=== PATIENT | female | born 1960 | race African-American/Black ===

== ENCOUNTER 2016-12-06 06:35 | Inpatient (IN) | payer OTHER, MEDICARE ==
[~2016-12-06] VITALS: Ht 170.2 cm; Wt 117.9 kg
[2016-12-06] MEDS ORDERED: SODIUM CHLORIDE 0.9% 1,000 ML IV ONE (06:46)
[2016-12-06] MEDS ORDERED: MECL-109 PO (06:47)
[2016-12-06] MEDS ORDERED: HYDR-3280 MT (06:49)
[2016-12-06] MEDS ORDERED: TRAM50TA3 PO (06:57)
[2016-12-06] MEDS ORDERED: OMEP20CA10 PO (06:57)
[2016-12-06] MEDS ORDERED: CINA30 PO (06:59)
[2016-12-06] MEDS ORDERED: SEVE800T8 PO (06:59)
[2016-12-06] MEDS ORDERED: CHOL400T15 MT (07:00)
[2016-12-06] MEDS ORDERED: NOREPINEPHRINE 4 MG in DEXT 5% WATER 246 ML IV ONE ×4 (07:15)
[2016-12-06 07:34] LABS: BG BASE EXCESS -0.2 mmol/L (-2.0-2.0); BG CARBOXYHEMOGLOBIN 1.4 % (0.5-1.5); BG DEOXYHEMOGLOBIN 3.1 % (0.0-5.0); BG FRACTION INSPIRED OXYGEN 32; BG HCO3 ACT 24.4 mmol/L (22.0-26.0); BG METHEMOGLOBIN 0.5 % (0.0-1.5); BG OXYGEN SATURATION 96.8 % (92.0-98.5); BG PCO2 39.8 mmHg (35.0-45.0); BG PH 7.405 (7.350-7.450); BG PO2 91.9 mmHg (75.0-100.0); BG SAMPLE SITE RIGHT RADIAL; BG TOTAL HEMOGLOBIN 13.1 g/dL (12.0-18.0); BG VENT MODE NASAL CANNULA
[2016-12-06 08:05] LABS: HEMATOCRIT. 38.4 % (36.0-48.0); HEMOGLOBIN. 12.3 g/dL (12.0-16.0); MEAN CORPUSCULAR HEMOGLOBIN 32.2 pg (28.0-32.0); MEAN CORPUSCULAR VOLUME 100.9 fL (81.0-99.0); MEAN PLATELET VOLUME 10.8 fl (7.4-10.4); PLATELET 58 x1000/uL (130-400); RED BLOOD CELL COUNT 3.81 mill/uL (4.2-5.4); RED CELL DISTRIBUTION WIDTH 17.6 % (11.6-14.6)
[2016-12-06 08:15] LABS: INR 2.1; PROTHROMBIN TIME 21.3 sec (9.4-11.6)
[2016-12-06] MEDS ORDERED: HYDROCODONE/ACETAMINOPHEN 5/325MG TABLET PO PRN ×2 (08:15→11:15)
[2016-12-06] MEDS ORDERED: DIPHENHYDRAMINE 50MG/ML VIAL IV PRN (08:15)
[2016-12-06] MEDS ORDERED: ACETAMINOPHEN 325MG TABLET PO PRN (08:15)
[2016-12-06] MEDS ORDERED: CLONIDINE 0.1MG TABLET PO PRN (08:15)
[2016-12-06] MEDS ORDERED: ACETAMINOPHEN 650MG/20.3ML UDC GT PRN (08:15)
[2016-12-06] MEDS ORDERED: DOCUSATE SODIUM 100MG CAPSULE PO PRN (08:15)
[2016-12-06] MEDS ORDERED: GUAIFENESIN 200MG/10ML SUGAR FREE UDC PO PRN (08:15)
[2016-12-06] MEDS ORDERED: MAGNESIUM/ALUMINUM HYDROXIDE/SIMETHICONE 30ML UDC PO PRN (08:15)
[2016-12-06] MEDS ORDERED: NA PHOS,M-B/NA PHOS,DI-BA ENEMA 118ML PR PRN (08:15)
[2016-12-06] MEDS ORDERED: IPRATROPIUM/ALBUTEROL 0.5-3(2.5)MG/3ML NEB INH PRN (08:15)
[2016-12-06] MEDS ORDERED: ACETAMINOPHEN 650MG SUPP PR PRN (08:15)
[2016-12-06 08:25] LABS: CARBON DIOXIDE 26 mEq/L (21-32); CHLORIDE 99 mEq/L (98-107); TROPONIN I 0.19 ng/mL (0.00-0.04)
[2016-12-06] MEDS ORDERED: VANCOMYCIN 1 G PREMIX 200 ML IV SCH (08:45)
[2016-12-06] MEDS ORDERED: GENTAMICIN 80MG PREMIX 100 ML IV ONE (08:45)
[2016-12-06 08:49] LABS: NUCLEATED RED BLOOD CELLS 2 /100 WBC; PLATELET ESTIMATE DECREASED
[2016-12-06] MEDS ORDERED: PIPERACILLIN/TAZ 3.375G PREMIX 50 ML IV ONE (09:00)
[2016-12-06 12:00] VITALS: BP 95/51
[2016-12-06] MEDS ORDERED: CINACALCET HCL 60MG TABLET PO SCH (13:00)
[2016-12-06] MEDS ORDERED: MIDODRINE HCL 5MG TABLET PO SCH (13:00)
[2016-12-06] MEDS: SEVELAMER CARBONATE 800 MG TABLET PO SCH ×2 (13:10→17:31)
[2016-12-06] MEDS ORDERED: PIPERACILLIN/TAZ 2.25G PREMIX 50 ML IV SCH (14:00)
[2016-12-06 14:08] LABS: HEPATITIS B SURFACE ANTIGEN NEGATIVE
[2016-12-06 14:36] LABS: HEPATITIS B CORE AB IGM NEGATIVE
[2016-12-06 14:37] LABS: HEPATITIS A AB IGM NEGATIVE (NEGATIVE)
[2016-12-06] MEDS ORDERED: LIDOCAINE HCL/PF 1% 2ML VIAL ONE (14:46)
[2016-12-06] MEDS: PIPERACILLIN/TAZ 2.25G PREMIX 50 ML IV SCH ×2 (14:49→21:42)
[2016-12-06] MEDS: SODIUM CHLORIDE 0.9% INJ 3ML FLUSH IVF SCH ×2 (14:50→21:44)
[2016-12-06] MEDS: DOCUSATE SODIUM 100MG CAPSULE PO SCH (17:31)
[2016-12-06] MEDS: ONDANSETRON HCL 4MG/2ML VIAL IV PRN (17:31)
[2016-12-06 20:00] VITALS: BP 92/37
[2016-12-07] VITALS (49 sets, daily range): BP systolic 63–136; BP diastolic 35–61
[2016-12-07] MEDS: PIPERACILLIN/TAZ 2.25G PREMIX 50 ML IV SCH ×2 (05:09→14:38)
[2016-12-07] MEDS: SODIUM CHLORIDE 0.9% INJ 3ML FLUSH IVF SCH ×3 (05:31→22:29)
[2016-12-07] MEDS ORDERED: SODIUM CHLORIDE 0.9% 250 ML IV ONE (06:45)
[2016-12-07 07:19] LABS: HEMATOCRIT. 35.9 % (36.0-48.0); HEMOGLOBIN. 11.6 g/dL (12.0-16.0); MEAN CORPUSCULAR VOLUME 99.2 fL (81.0-99.0); MEAN PLATELET VOLUME 10.8 fl (7.4-10.4); PLATELET 53 x1000/uL (130-400); RED BLOOD CELL COUNT 3.61 mill/uL (4.2-5.4); RED CELL DISTRIBUTION WIDTH 17.5 % (11.6-14.6)
[2016-12-07] MEDS: SEVELAMER CARBONATE 800 MG TABLET PO SCH ×3 (08:10→17:42)
[2016-12-07 08:39] LABS: CARBON DIOXIDE 24 mEq/L (21-32); CHLORIDE 97 mEq/L (98-107); PHOSPHORUS 7.3 mg/dL (2.5-4.9)
[2016-12-07] MEDS: FOLIC ACID/VITAMIN B COMP W-C TABLET PO SCH (09:00)
[2016-12-07] MEDS ORDERED: DEXTROSE 50% WATER 50ML SYRINGE IV PRN ×2 (10:00→10:45)
[2016-12-07] MEDS ORDERED: ALBUMIN HUMAN 25GM/100ML (25%) IV NR (10:08)
[2016-12-07 10:15] LABS: PLATELET ESTIMATE DECREASED
[2016-12-07] MEDS ORDERED: DEXT 10%/0.9% NACL 1,000 ML IV SCH (10:30)
[2016-12-07] MEDS: SODIUM CHLORIDE 23.4% 154 MEQ in DEXT 10% WATER 1,000 ML IV SCH (12:16)
[2016-12-07] MEDS: DOCUSATE SODIUM 100MG CAPSULE PO SCH ×2 (12:17→17:00)
[2016-12-07] MEDS: OMEPRAZOLE 20MG CAPSULE EXTENDED RELEASE PO SCH (12:17)
[2016-12-07] MEDS: MIDODRINE HCL 5MG TABLET PO SCH ×3 (12:18→17:43)
[2016-12-07] MEDS ORDERED: BLOOD SUGAR DIAGNOSTIC STRIP TEST SCH (12:40)
[2016-12-07] MEDS: NOREPINEPHRINE 16 MG in DEXT 5% WATER 234 ML IV PRN (15:50)
[2016-12-07] MEDS: METOCLOPRAMIDE HCL 10MG/2ML VIAL IV SCH (17:43)
[2016-12-07] MEDS: BLOOD SUGAR DIAGNOSTIC STRIP TEST SCH (17:57)
[2016-12-07] MEDS ORDERED: METOCLOPRAMIDE HCL 10MG/2ML VIAL IV SCH (18:00)
[2016-12-08] VITALS (102 sets, daily range): BP systolic 80–137; BP diastolic 39–79
[2016-12-08] MEDS: METOCLOPRAMIDE HCL 10MG/2ML VIAL IV SCH ×5 (00:23→23:15)
[2016-12-08] MEDS: BLOOD SUGAR DIAGNOSTIC STRIP TEST SCH ×5 (00:29→23:21)
[2016-12-08] MEDS: PIPERACILLIN/TAZ 2.25G PREMIX 50 ML IV SCH ×4 (01:25→21:23)
[2016-12-08 04:56] LABS: HEMATOCRIT. 38.7 % (36.0-48.0); HEMOGLOBIN. 12.7 g/dL (12.0-16.0); MEAN CORPUSCULAR HEMOGLOBIN 32.1 pg (28.0-32.0); MEAN CORPUSCULAR VOLUME 97.8 fL (81.0-99.0); PLATELET 67 x1000/uL (130-400); RED BLOOD CELL COUNT 3.96 mill/uL (4.2-5.4); RED CELL DISTRIBUTION WIDTH 17.6 % (11.6-14.6)
[2016-12-08 05:09] LABS: CARBON DIOXIDE 26 mEq/L (21-32); CHLORIDE 95 mEq/L (98-107)
[2016-12-08 05:52] LABS: PHOSPHORUS 7.2 mg/dL (2.5-4.9)
[2016-12-08] MEDS: SODIUM CHLORIDE 0.9% INJ 3ML FLUSH IVF SCH ×3 (06:28→21:24)
[2016-12-08] MEDS: SEVELAMER CARBONATE 800 MG TABLET PO SCH ×3 (06:33→17:00)
[2016-12-08] MEDS: OMEPRAZOLE 20MG CAPSULE EXTENDED RELEASE PO SCH (06:35)
[2016-12-08] MEDS ORDERED: CINACALCET HCL 30MG TABLET PO SCH (07:00)
[2016-12-08] MEDS: ONDANSETRON HCL 4MG/2ML VIAL IV PRN (08:31)
[2016-12-08 08:46] LABS: PLATELET ESTIMATE DECREASED
[2016-12-08] MEDS: MIDODRINE HCL 5MG TABLET PO SCH ×3 (09:00→17:00)
[2016-12-08] MEDS: DOCUSATE SODIUM 100MG CAPSULE PO SCH ×2 (09:00→17:00)
[2016-12-08] MEDS: FOLIC ACID/VITAMIN B COMP W-C TABLET PO SCH (09:00)
[2016-12-08] MEDS: NOREPINEPHRINE 16 MG in DEXT 5% WATER 234 ML IV PRN (12:31)
[2016-12-08] MEDS: SODIUM CHLORIDE 23.4% 154 MEQ in DEXT 10% WATER 1,000 ML IV SCH (12:33)
[2016-12-08] MEDS ORDERED: PAMIDRONATE DISODIUM 60 MG in SODIUM CHLORIDE 0.9% 500 ML IV NR (13:00)
[2016-12-08] MEDS ORDERED: ALBUMIN HUMAN 25GM/100ML (25%) IV NR (15:45)
[2016-12-08] MEDS: MORPHINE SULFATE 4 MG/ML CPJ (NOT FOR IM USE) IV PRN ×2 (16:07→23:15)
[2016-12-09] VITALS (102 sets, daily range): BP systolic 48–131; BP diastolic 26–104
[2016-12-09] MEDS: NOREPINEPHRINE 16 MG in DEXT 5% WATER 234 ML IV PRN ×3 (02:20→18:41)
[2016-12-09 05:43] LABS: HEMATOCRIT. 40.8 % (36.0-48.0); HEMOGLOBIN. 12.9 g/dL (12.0-16.0); MEAN CORPUSCULAR HEMOGLOBIN 32.3 pg (28.0-32.0); MEAN CORPUSCULAR VOLUME 102.6 fL (81.0-99.0); MEAN PLATELET VOLUME 11.1 fl (7.4-10.4); RED BLOOD CELL COUNT 3.98 mill/uL (4.2-5.4); RED CELL DISTRIBUTION WIDTH 18.9 % (11.6-14.6)
[2016-12-09 06:06] LABS: PLATELET 41 x1000/uL (130-400)
[2016-12-09 06:15] LABS: CARBON DIOXIDE 14 mEq/L (21-32); CHLORIDE 93 mEq/L (98-107)
[2016-12-09 06:16] LABS: AMYLASE 672 IU/L (25-115)
[2016-12-09] MEDS: OMEPRAZOLE 20MG CAPSULE EXTENDED RELEASE PO SCH (06:30)
[2016-12-09] MEDS: METOCLOPRAMIDE HCL 10MG/2ML VIAL IV SCH ×3 (06:39→18:49)
[2016-12-09] MEDS: BLOOD SUGAR DIAGNOSTIC STRIP TEST SCH ×3 (06:40→18:39)
[2016-12-09] MEDS: PIPERACILLIN/TAZ 2.25G PREMIX 50 ML IV SCH (06:40)
[2016-12-09] MEDS: SODIUM CHLORIDE 0.9% INJ 3ML FLUSH IVF SCH ×2 (06:40→15:41)
[2016-12-09] MEDS ORDERED: ALBUMIN HUMAN 25GM/100ML (25%) IV SCH (06:45)
[2016-12-09 07:02] LABS: PHOSPHORUS 10.9 mg/dL (2.5-4.9)
[2016-12-09 07:05] LABS: PROTHROMBIN TIME > 100.0 sec (9.4-11.6)
[2016-12-09 07:06] LABS: INR > 10.0
[2016-12-09 07:08] LABS: PARTIAL THROMBOPLASTIN TIME 119.2 sec (23.4-31.0)
[2016-12-09] MEDS ORDERED: PHYTONADIONE 10MG/ML AMP SUBCUT SCH (07:15)
[2016-12-09] MEDS ORDERED: PHENYLEPHRINE 40 MG in DEXT 5% WATER 246 ML IV PRN ×4 (09:30)
[2016-12-09 10:04] LABS: BG BASE EXCESS -23.8 mmol/L (-2.0-2.0); BG CARBOXYHEMOGLOBIN 1.9 % (0.5-1.5); BG DEOXYHEMOGLOBIN 9.9 % (0.0-5.0); BG FRACTION INSPIRED OXYGEN 26; BG HCO3 ACT 6.1 mmol/L (22.0-26.0); BG METHEMOGLOBIN 0.6 % (0.0-1.5); BG OXYGEN SATURATION 89.8 % (92.0-98.5); BG OXYHEMOGLOBIN 87.6 % (94.0-97.0); BG PCO2 25.2 mmHg (35.0-45.0); BG PH 7.002 (7.350-7.450); BG SAMPLE SITE RIGHT RADIAL; BG TOTAL HEMOGLOBIN 12.4 g/dL (12.0-18.0); BG VENT MODE NASAL CANNULA
[2016-12-09] MEDS ORDERED: SODIUM BICARBONATE 8.4% 1 MEQ/ML 50ML SYR IV NR ×2 (10:15→13:15)
[2016-12-09] MEDS ORDERED: SODIUM BICARBONATE 150 MEQ in DEXTROSE 5% WATER 1,000 ML IV SCH (10:30)
[2016-12-09] MEDS ORDERED: MEROPENEM XX SCH (10:30)
[2016-12-09] MEDS ORDERED: ALBUMIN HUMAN 25GM/100ML (25%) IV NR ×2 (10:30→18:45)
[2016-12-09] MEDS ORDERED: PROPOFOL 10MG/ML 100ML 100 ML IV PRN (10:30)
[2016-12-09 10:31] LABS: PLATELET ESTIMATE DECREASED
[2016-12-09 10:35] LABS: NUCLEATED RED BLOOD CELLS 2 /100 WBC
[2016-12-09] MEDS ORDERED: SODIUM ACETATE IV SCH (11:00)
[2016-12-09] MEDS ORDERED: WATER IV SCH (11:00)
[2016-12-09] MEDS ORDERED: DEXT 10% IV SCH (11:00)
[2016-12-09] MEDS ORDERED: MEROPENEM 1000MG in NORMAL SALINE 100ML IV SCH (12:00)
[2016-12-09 12:58] LABS: BG BASE EXCESS -24.6 mmol/L (-2.0-2.0); BG CARBOXYHEMOGLOBIN 1.2 % (0.5-1.5); BG DEOXYHEMOGLOBIN 3.3 % (0.0-5.0); BG FRACTION INSPIRED OXYGEN 60; BG HCO3 ACT 6.2 mmol/L (22.0-26.0); BG METHEMOGLOBIN 0.8 % (0.0-1.5); BG OXYGEN SATURATION 96.6 % (92.0-98.5); BG OXYHEMOGLOBIN 94.7 % (94.0-97.0); BG PCO2 28.2 mmHg (35.0-45.0); BG PH 6.957 (7.350-7.450); BG PO2 128.2 mmHg (75.0-100.0); BG SAMPLE SITE RIGHT RADIAL; BG TIDAL VOLUME(mL) 500 mL; BG VENT MODE VENT - A/C; BG VENT RATE 14 set
[2016-12-09] MEDS ORDERED: VANCOMYCIN 1 G PREMIX 200 ML IV SCH (13:30)
[2016-12-09] MEDS: PHENYLEPHRINE 80 MG in DEXT 5% WATER 492 ML IV PRN ×2 (13:54→20:01)
[2016-12-09] MEDS ORDERED: PANTOPRAZOLE SODIUM 40 MG/VIAL IV SCH (15:30)
[2016-12-09] MEDS ORDERED: DOPAMINE 400MG PREMIX 250 ML IV PRN (15:30)
[2016-12-09 16:38] LABS: BG BASE EXCESS -24.1 mmol/L (-2.0-2.0); BG CARBOXYHEMOGLOBIN 1.1 % (0.5-1.5); BG DEOXYHEMOGLOBIN 8.1 % (0.0-5.0); BG FRACTION INSPIRED OXYGEN 50; BG HCO3 ACT 6.4 mmol/L (22.0-26.0); BG METHEMOGLOBIN 0.8 % (0.0-1.5); BG OXYGEN SATURATION 91.7 % (92.0-98.5); BG PCO2 28.6 mmHg (35.0-45.0); BG PH 6.967 (7.350-7.450); BG PO2 92.4 mmHg (75.0-100.0); BG SAMPLE SITE LEFT RADIAL; BG TIDAL VOLUME(mL) 600 mL; BG TOTAL HEMOGLOBIN 10.3 g/dL (12.0-18.0); BG VENT MODE VENT - A/C; BG VENT RATE 16 set
[2016-12-09] MEDS: DOPAMINE 800MG PREMIX 250 ML IV PRN ×2 (17:40→20:02)
[2016-12-09] MEDS ORDERED: SODIUM BICARBONATE 7.5% 0.9 MEQ/ML 50ML SYR IV ONE (20:00)
[2016-12-09] MEDS ORDERED: CALCIUM CHLORIDE 1GM/10ML SYR IV ONE (20:00)
[2016-12-09] MEDS ORDERED: EPINEPHRINE 1 MG in SODIUM CHLORIDE 0.9% 249 ML IV PRN (20:00)
[2016-12-09] MEDS ORDERED: EPINEPHRINE 0.1MG/ML (1:10,000) 10ML SYR ONE (20:00)
[2016-12-09] MEDS ORDERED: PHYTONADIONE 5MG TABLET NG NR (21:00)
== END 2016-12-09 20:35 | disposition expired | DRG 871 ==
LOC: ER 06:35 → 7WST 08:05 → EDBEDREQTM 08:08 → EDBEDREQ 08:08 → EDBEDREQSVC 08:08 → CANRESERV 08:55 → ENRESERV 08:55 → MICUSO 12-07 14:30
PROVIDERS: ADMIT Family Medicine; ATTEND Family Medicine
PROC: 02HV33Z Insertion of Infusion Device into Superior Vena Cava, Percutaneous Approach (ICD-10-PCS; 2016-12-06)
PROC: B548ZZA Ultrasonography of Superior Vena Cava, Guidance (ICD-10-PCS; 2016-12-06)
PROC: 5A1945Z Respiratory Ventilation, 24-96 Consecutive Hours (ICD-10-PCS; principal; 2016-12-09)
PROC: 0BH17EZ Insertion of Endotracheal Airway into Trachea, Via Natural or Artificial Opening (ICD-10-PCS; 2016-12-09)
PROC: 30233L1 Transfusion of Nonautologous Fresh Plasma into Peripheral Vein, Percutaneous Approach (ICD-10-PCS; 2016-12-09)
PROC: 30233K1 Transfusion of Nonautologous Frozen Plasma into Peripheral Vein, Percutaneous Approach (ICD-10-PCS; 2016-12-09)
DX: A41.9 Sepsis, unspecified organism (principal); D65 Disseminated intravascular coagulation [defibrination syndrome]; J96.00 Acute respiratory failure, unspecified whether with hypoxia or hypercapnia; R65.21 Severe sepsis with septic shock; I81 Portal vein thrombosis; G93.41 Metabolic encephalopathy; K85.90 Acute pancreatitis without necrosis or infection, unspecified; I47.2 Ventricular tachycardia; N18.6 End stage renal disease; E43 Unspecified severe protein-calorie malnutrition; I13.2 Hypertensive heart and chronic kidney disease with heart failure and with stage 5 chronic kidney disease, or end stage renal disease; R18.8 Other ascites; Z68.41 Body mass index [BMI] 40.0-44.9, adult; E16.2 Hypoglycemia, unspecified; E87.5 Hyperkalemia; I50.9 Heart failure, unspecified; E66.01 Morbid (severe) obesity due to excess calories; E78.5 Hyperlipidemia, unspecified; E83.52 Hypercalcemia; G47.33 Obstructive sleep apnea (adult) (pediatric); J45.909 Unspecified asthma, uncomplicated; K74.60 Unspecified cirrhosis of liver; M10.9 Gout, unspecified; Z99.2 Dependence on renal dialysis; Z82.49 Family history of ischemic heart disease and other diseases of the circulatory system; Z85.3 Personal history of malignant neoplasm of breast; Z90.12 Acquired absence of left breast and nipple; Z98.84 Bariatric surgery status
CPT/HCPCS: 36415; 36569; 36600; 71010; 74000; 76700; 76705; 76937; 80053; 82150; 82375; 82805; 82962; 83605; 83690; 83735; 84100; 84478; 84484; 85025; 85610; 85730; 86705; 86709; 86803; 86850; 86900; 86927; 87040; 87070; 87077; 87186; 87205; 87340; 93005; 94002; 96360; 96361; 99291; C1725; C9113; J0171; J1265; J1580; J2185; J2270; J2370; J2405; J2430; J2543; J2704; J2765; J3370; J3430; J3490; J7030; J7040; J7050; J7060; J7070; J7131; P9017; P9047